=== PATIENT | male | born 1985 | race Caucasian/White ===

== ENCOUNTER 2024-06-02 01:23 | Inpatient (IN) | payer MEDICAID ==
[~2024-06-02] VITALS: Ht 175.3 cm; Wt 79.1 kg
[2024-06-02 11:29] VITALS: BP 132/69; PULSE 72; RESP 18; TEMP 98; O2SAT 97
[2024-06-02] MEDS ORDERED: acetaminophen 325mg tablet PO PRN (11:45)
[2024-06-02] MEDS ORDERED: magnesium hydroxide 30ml (MOM) UD suspension PO PRN (11:45)
[2024-06-02] MEDS ORDERED: mag hydrox/Alum hydrox/simeth 30ml oral suspension PO PRN (11:45)
[2024-06-02 13:53] VITALS: RESP 18; O2SAT 97
[2024-06-02] MEDS: acetaminophen 325mg tablet PO PRN (14:21)
[2024-06-02] MEDS: NICOTINE POLACRILEX 2 MG LOZENGE BC PRN (14:22)
[2024-06-02] MEDS ORDERED: LAMO150T2 PO (16:58)
[2024-06-02] MEDS ORDERED: BUPR100T13 PO (16:58)
[2024-06-02 19:00] VITALS: RESP 16; O2SAT 97
[2024-06-02 20:00] VITALS: BP 115/76; PULSE 66; RESP 16; TEMP 97.5; O2SAT 97
[2024-06-02] MEDS: lamoTRIgine 100mg tablet PO SCH (20:41)
[2024-06-03 07:00] VITALS: RESP 18; O2SAT 94
[2024-06-03 08:00] VITALS: BP 109/68; PULSE 56; RESP 18; TEMP 97.9; O2SAT 94
[2024-06-03] MEDS: nicotine 21mg patch - 24 hr TD SCH (08:16)
[2024-06-03 09:27] LABS: CHOL/HDL RATIO 3.8 (0.00-4.99); CHOLESTEROL 192 MG/DL (0-200); HDL CHOLESTEROL 50 MG/DL (35-60); LDL CHOLESTEROL 125 MG/DL (50-100); THYROID STIMULATING HORMONE 1.76 ulU/ml (0.34-4.50); TRIGLYCERIDES 95 MG/DL (20-135)
[2024-06-03 09:33] LABS: HEMOGLOBIN A1C 5.4 % (4.5-6.2)
[2024-06-03] MEDS: loperamide 2mg capsule PO PRN (14:30)
[2024-06-03 19:00] VITALS: BP 120/66; PULSE 91; RESP 18; TEMP 97.7; O2SAT 99
[2024-06-03] MEDS: atomoxetine 40 MG capsule PO SCH (21:09)
[2024-06-04 05:19] LABS: HBSAG SCREEN Negative (Negative); HEP B CORE AB, IGM Negative (Negative); HEP B CORE AB, TOT Negative (Negative); HEP B SURF AB Reactive (.)
[2024-06-04 07:00] VITALS: RESP 16; O2SAT 69
[2024-06-04 08:00] VITALS: BP 117/70; PULSE 69; RESP 16; TEMP 97.7; O2SAT 100
[2024-06-04 19:00] VITALS: RESP 20; O2SAT 98
[2024-06-04 20:50] VITALS: BP 115/75; PULSE 88; RESP 20; TEMP 97.8; O2SAT 98
[2024-06-04] MEDS: atomoxetine 40 MG capsule PO SCH (21:56)
[2024-06-05 08:00] VITALS: BP 111/62; PULSE 78; RESP 16; TEMP 97.7; O2SAT 98
[2024-06-05 09:08] VITALS: RESP 16
[2024-06-05 19:00] VITALS: RESP 16; O2SAT 98
[2024-06-05 20:37] VITALS: BP 125/60; PULSE 71; RESP 16; TEMP 97.4; O2SAT 98
[2024-06-06 07:00] VITALS: RESP 16; O2SAT 99
[2024-06-06 08:00] VITALS: BP 117/75; PULSE 75; RESP 16; TEMP 97.5; O2SAT 99
[2024-06-06] MEDS ORDERED: ATOM40CA PO (10:37)
== END 2024-06-06 11:01 | disposition home or self-care (01) | DRG 751 ==
LOC: ADULT MH 11:24 → UNDOADMIN 11:24 → ADULT MH 11:29
PROVIDERS: ADMIT Psychiatry & Neurology Psychiatry; ATTEND Psychiatry & Neurology Psychiatry
PROC: GZHZZZZ Group Psychotherapy (ICD-10-PCS; principal; 2024-06-02)
PROC: GZ51ZZZ Individual Psychotherapy, Behavioral (ICD-10-PCS; 2024-06-02)
DX: F33.1 Major depressive disorder, recurrent, moderate (principal); R45.851 Suicidal ideations
CPT/HCPCS: 36415; 80061; 83036; 84443; 86704; 86705; 86706; 87081; 87340; A6250